=== PATIENT | female | born 1970 | race Two or more races ===

== ENCOUNTER 2023-01-20 05:24 | Day surgery (SDC) | payer OTHER ==
[~2023-01-20] VITALS: Ht 167.6 cm; Wt 109.8 kg
[~2023-01-20 05:24] MED LIST: CRESTOR5 MG PO
== END 2023-01-20 11:10 | disposition home or self-care (01) ==
LOC: CIR.AMB 05:24
PROVIDERS: ATTEND Surgery
DX: K80.10 Calculus of gallbladder with chronic cholecystitis without obstruction (principal); Z20.822 Contact with and (suspected) exposure to COVID-19; Z88.2 Allergy status to sulfonamides; Z88.1 Allergy status to other antibiotic agents

== ENCOUNTER → 2024-08-02 | Emergency (ER) | payer OTHER ==
[~2024-08-02] VITALS: Ht 167.6 cm; Wt 109.8 kg
[~2024-08-02] MED LIST changes: +AROMASIN25 MG PO
[2024-08-02 12:54] VITALS: BP 125/76; O2SAT 98
== END | disposition left against medical advice (07) ==
LOC: ER 12:43
DX: Z53.21 Procedure and treatment not carried out due to patient leaving prior to being seen by health care provider (principal)